=== PATIENT | female | born 1980 | race Caucasian/White ===

== ENCOUNTER 2025-03-26 13:39 | Emergency (ER) | payer OTHER ==
[~2025-03-26] VITALS: Ht 160 cm; Wt 71.2 kg
[2025-03-26 14:35] VITALS: BP 127/101; TEMP 98.6
[2025-03-26] MEDS ORDERED: ACETAMINOPHEN ES 500 MG TABLET ONE (14:52)
[2025-03-26] MEDS ORDERED: IBUPROFEN 600 MG TABLET ONE (14:53)
[2025-03-26] MEDS: ACETAMINOPHEN ES 500 MG TABLET PO ONE (14:56)
[2025-03-26] MEDS: IBUPROFEN 600 MG TABLET PO ONE (14:56)
[2025-03-26] MEDS ORDERED: IBUP-1490 PO (17:11)
[2025-03-26 17:20] VITALS: O2SAT 99
[2025-03-26 17:53] LABS: PREGNANCY TEST URINE QUAL NEGATIVE (NEGATIVE)
== END 2025-03-26 17:20 | disposition home or self-care (01) ==
LOC: ER 14:08
DX: M54.50 Low back pain, unspecified (principal)
CPT/HCPCS: 72110-TC; 84703-TC